=== PATIENT | female | born 1955 | race Caucasian/White ===

== ENCOUNTER 2019-06-18 11:36 | Emergency (ER) | payer OTHER ==
--- NOTE | 2019-06-18 11:57 | UC ---
Cardiac HPI - HPI Summary HPI Summary: 63 yo woman who has not seen a physician in some years. She comes for assessment of substernal chest pain that began about an hour ago and has since resolved, associated with mild shortness of breath. She might have had a mild heart attack in the past, but her past stress testing was negative for ischemia, done some years ago. She reports occasional chest pain of this nature, but it generally is darline limited and she ignores it. co- workers today were insistent that she come for assessment. Took amloidipine in the past but no longer does. She has a history of reflux, but the pain which she gets from that feels different. She denies history of elevated cholesterol. Adopted, FH is not well known, but one half brother has heart disease. Has never smoked. - History of Current Complaint Stated Complaint: JAW, CHEST PAIN Time Seen by Provider: 06/18/19 11:56 Hx Obtained From: Patient Onset/Duration: Sudden Onset, Lasting Hours Initial Severity: Moderate Current Severity: None Chest Pain Location: Mid Sternal Character: Pressure/Squeezing Aggravating Factor(s): Nothing Alleviating Factor(s): Rest Associated Signs & Symptoms: Positive: Chest Pain - Risk Factors Pulmonary Embolism Risk Factors: Negative Cardiac Risk Factors: Family History Atrial Fibrillation: Negative - Allergy/Home Medications Allergies/Adverse Reactions: Allergies Allergy/AdvReac Type Severity Reaction Status Date / Time general anethsia Allergy Unknown Tinnitus Uncoded 06/18/19 11:57 PMH/Surg Hx/FS Hx/Imm Hx Previously Healthy: Yes - no regular medical care - Family History Known Family History: Positive: Unknown - Adopted, and extensive history is not known., Cardiac Disease - in half brother - Social History Occupation: Employed Full-time Lives: With Family Alcohol Use: None Review of Systems All Other Systems Reviewed And Are Negative: Yes Constitutional: Positive: Negative, Other - No cough or recent illness. Skin: Positive: Negative Eyes: Positive: Negative ENT: Positive: Negative Respiratory: Positive: Shortness Of Breath Cardiovascular: Positive: Chest Pain Gastrointestinal: Positive: Negative Genitourinary: Positive: Negative Motor: Positive: Negative Neurovascular: Positive: Negative Musculoskeletal: Positive: Negative Neurological: Positive: Negative Psychological: Positive: Anxious Is Patient Immunocompromised?: No Physical Exam Triage Information Reviewed: Yes Appearance: Well-Appearing, No Pain Distress, Obese Eye Exam: Other - LENIN, normal fundi Eyes: Positive: Conjunctiva Clear ENT: Positive: Pharynx normal Neck: Positive: Supple, Nontender, No Lymphadenopathy Respiratory: Positive: Lungs clear, Normal breath sounds, No respiratory distress Cardiovascular: Positive: RRR, No Murmur, Pulses Normal Abdomen Description: Positive: Nontender, No Organomegaly Musculoskeletal Exam: Normal Neurological Exam: Normal Psychological Exam: Normal Skin Exam: Normal Diagnostics - EKG Cardiac Rate: NL Cardiac Rhythm: Sinus: Normal Ectopy: None ST Segment: Non-Specific - mild elevation in V2 - Assessment/Plan Course Of Treatment: Aspirin given. Concern from prior history and EKG changes for ischemic disease. Advised transfer of paitient to emergeny room by ambulace. - Differential Diagnoses - Chest Pain Differential Diagnosis/HQI/PQRI: ACS, Angina, GI Disease - Clinical Impression Provider Diagnosis: Chest pain - Physician Notifications Discussed Patient Care With: SUMMER Weinstein at [facility] ER Time Discussed With Above Provider: 12:25 Discharge ED - Sign-Out/Discharge Documenting (check all that apply): Patient Departure All imaging exams completed and their final reports reviewed: No Studies - Discharge Plan Condition: Stable Disposition: TRANS HIGHER LVL OF CARE FAC Referrals: No Primary Care Phys,NOPCP [Medical Doctor] - - Billing Disposition and Condition Condition: STABLE Disposition: Trans Higher Lvl of Care Fac
[2019-06-18] MEDS ORDERED: Aspirin 81 mg CHEW TAB* 81 MG TAB.CHEW PO ONE (12:08)
[2019-06-18 12:30] VITALS: BP 164/116
== END 2019-06-18 12:35 | disposition short-term general hospital (02) ==
LOC: UCCORT 11:36
DX: R07.89 Other chest pain (principal); R06.02 Shortness of breath; Z88.6 Allergy status to analgesic agent
CPT/HCPCS: 93005; 99203; A9270-GY; G0463